=== PATIENT | female | born 1960 | race Hispanic/Latino ===

== ENCOUNTER 2018-08-10 05:29 | Day surgery (SDC) | payer MEDICAID ==
[~2018-08-10] VITALS: Ht 160 cm; Wt 65.2 kg
[2018-08-10] MEDS ORDERED: SODIUM CHLORIDE 0.9% 1000ML 1,000 ML IV ONE (05:52)
[2018-08-10 06:32] VITALS: BP 131/58
[2018-08-10] MEDS ORDERED: SERT50TA12 PO (07:13)
[2018-08-10] MEDS ORDERED: POTASSIUM PO (07:13)
[2018-08-10] MEDS ORDERED: ATOR10TA69 PO (07:13)
[2018-08-10] MEDS ORDERED: SITA25TA5 PO (07:13)
[2018-08-10] MEDS ORDERED: LISI2.5T2 PO (07:13)
[2018-08-10] MEDS ORDERED: GLIP5TAB11 PO (07:13)
[2018-08-10] MEDS ORDERED: PROPOFOL 1000 MG/100 ML 100 ML IV ONE (07:42)
[2018-08-10 08:14] VITALS: BP 90/39
[2018-08-10 08:19] VITALS: BP 93/48
[2018-08-10 08:24] VITALS: BP 92/44
[2018-08-10 08:29] VITALS: BP 114/45
[2018-08-10 08:40] VITALS: BP 125/52
--- NOTE | 2018-08-10 08:45 | NUR ---
PT TOLERATED PROCEDURE WELL, POST CARE INSTRUCTIONS GIVEN TO FAMILY. BOTH VERBALIZED UNDERSTANDING OF HOME CARE INSTRUCTIONS, GIVEN APPOINTMENT DATE/TIME TO FOLLOW UP WITH DR. HOANG. PT DRESSED AT BEDSIDE MINIMAL ASSISTANCE, PLACED IN WHEEL CHAIR AND DRIVEN HOME BY FAMILY.
== END 2018-08-10 08:45 | disposition home or self-care (01) ==
LOC: DAH 05:29 → ENDO 05:29
PROVIDERS: ATTEND Internal Medicine
DX: Z12.11 Encounter for screening for malignant neoplasm of colon (principal); K63.5 Polyp of colon; K64.0 First degree hemorrhoids; K57.30 Diverticulosis of large intestine without perforation or abscess without bleeding; K31.7 Polyp of stomach and duodenum; K22.8 Other specified diseases of esophagus; K31.89 Other diseases of stomach and duodenum; I10 Essential (primary) hypertension; F41.9 Anxiety disorder, unspecified; F32.9 Major depressive disorder, single episode, unspecified; Z79.899 Other long term (current) drug therapy; E11.9 Type 2 diabetes mellitus without complications; E78.5 Hyperlipidemia, unspecified
CPT/HCPCS: 43239; 45380; 45385; 82948 ×2; 88305; A4606; J2704; J7030

== ENCOUNTER → 2018-08-15 | Outpatient (CLI) | payer MEDICAID ==
[~2018-08-15] MED LIST: ATOR10TA69 PO; GLIP5TAB11 PO; LISI2.5T2 PO; POTASSIUM PO; SERT50TA12 PO; SITA25TA5 PO
== END | disposition home or self-care (01) ==
LOC: RAH 10:28
PROVIDERS: ATTEND Physician Assistant
DX: Z12.31 Encounter for screening mammogram for malignant neoplasm of breast (principal)
CPT/HCPCS: 77067

== ENCOUNTER → 2020-04-14 | Outpatient (CLI) | payer MEDICAID | END | disposition home or self-care (01) | LOC: RAH 09:58 | PROVIDERS: ATTEND Internal Medicine Gastroenterology | DX: R10.11 Right upper quadrant pain (principal); R68.81 Early satiety | CPT/HCPCS: 76700; 78264; 93975; A9541 ==